=== PATIENT | female | born 1980 | race Two or more races ===

== ENCOUNTER 2016-12-21 06:21 | Day surgery (SDC) | payer OTHER ==
[2016-12-20 14:51] LABS: CHLORIDE,CL 107 mmol/L (98-110); SODIUM,NA 140 mmol/L (136-146)
[~2016-12-21 06:21] MED LIST: Lactated Ringers 1,000 ML IV SCH; Sodium Chloride 0.9% 10 ML Syringe FLUSH PRN; Sodium Chloride 0.9% 2.5 ML Syringe FLUSH PRN; ceFAZolin 2 GM in Premix Bag 1 BAG IV ONE
[2016-12-21] MEDS ORDERED: Fluorescein 5 ML Vial ONE (07:30)
[2016-12-21] MEDS ORDERED: Propofol 200 MG/20 ML SDV ONE (07:31)
[2016-12-21] MEDS ORDERED: fentaNYL 100 MCG/2 ML SDV ONE ×2 (07:31→08:16)
[2016-12-21] MEDS ORDERED: Midazolam 1 MG/ML 2 ML SDV ONE (07:31)
[2016-12-21] MEDS ORDERED: Octyl 2-Cyanoacrylate 1 Tube ONE (07:32)
[2016-12-21] MEDS ORDERED: Metoclopramide 10 MG/2 ML SDV ONE (07:37)
[2016-12-21] MEDS ORDERED: Rocuronium 10 MG/ML 10 ML Syringe ONE (07:37)
[2016-12-21] MEDS ORDERED: Ketorolac 30 MG/ML SDV ONE (07:37)
[2016-12-21] MEDS ORDERED: Lidocaine 2% 5 ML SDV ONE (07:37)
[2016-12-21] MEDS ORDERED: Ondansetron 4 MG/2 ML SDV ONE (07:37)
[2016-12-21] MEDS ORDERED: diphenhydrAMINE 50 MG/ML SDV ONE (07:37)
[2016-12-21] MEDS ORDERED: Neostigmine Methylsulfate 1 MG/ML 5 ML Syringe ONE (07:37)
[2016-12-21] MEDS ORDERED: ceFAZolin 1 GM Vial ONE (07:38)
[2016-12-21] MEDS ORDERED: fentaNYL 100 MCG/2 ML SDV IVPUSH PRN (07:43)
[2016-12-21] MEDS ORDERED: Scopolamine 1.5 MG Transdermal Patch TRDERM PRN (07:46)
--- NOTE | 2016-12-21 07:46 | PCM.PREANE ---
Preanesthetic Assessment - Anesthesia/Transfusion/Family Hx Anesthesia History: Prior Anesthesia Without Reaction Type of Anesthesia Reaction: Excessive Nausea/Vomiting Other Type of Anesthesia Reaction Comment: states "anesthesia wears off on me quickly" Family History of Anesthesia Reaction: No Transfusion History: No Prior Transfusion(s) - Review of Systems General: No Symptoms Pulmonary: No Symptoms Cardiovascular: No Symptoms Gastrointestinal: No Symptoms Neurological: No Symptoms Other: Reports: None - Physical Assessment NPO Status Date: 12/20/16 NPO Status Time: 18:00 O2 Sat by Pulse Oximetry: 98 Respiratory Rate: 16 Vital Signs: Last Vital Signs Temp 36.4 C 12/21/16 06:28 Pulse 79 12/21/16 06:28 Resp 16 12/21/16 06:28 BP 132/78 12/21/16 06:28 Pulse Ox 98 12/21/16 06:28 Height: 1.68 m Weight: 109.316 kg ASA Class: 2 Mental Status: Alert & Oriented x3 Airway Class: Mallampati = 2 Dentition: Reports: Normal Dentition ROM/Head Extension: Full Lungs: Clear to Auscultation, Normal Respiratory Effort Cardiovascular: Regular Rate, Regular Rhythm - Lab Values: Laboratory Last Values WBC 10.09 K/uL (4.0-11.0) 12/20/16 14:19 RBC 4.75 M/uL (4.30-5.90) 12/20/16 14:19 Hgb 9.5 g/dL (12.0-16.0) L 12/20/16 14:19 Hct 31.1 % (36.0-46.0) L 12/20/16 14:19 MCV 65.5 fL (80.0-98.0) L 12/20/16 14:19 MCH 20.0 pg (27.0-32.0) L 12/20/16 14:19 MCHC 30.5 g/dL (31.0-37.0) L 12/20/16 14:19 RDW Std Deviation 45.2 fl (28.0-62.0) 12/20/16 14:19 RDW Coeff of Abdoulaye 19 % (11.0-15.0) H 12/20/16 14:19 Plt Count 350 K/uL (150-400) 12/20/16 14:19 MPV 9.20 fL (7.40-12.00) 12/20/16 14:19 Nucleated RBC % 0.0 /100WBC 12/20/16 14:19 Nucleated RBCs # 0 K/uL 12/20/16 14:19 Sodium 140 mmol/L (136-146) 12/20/16 14:19 Potassium 3.6 mmol/L (3.5-5.1) 12/20/16 14:19 Chloride 107 mmol/L (98-110) 12/20/16 14:19 Carbon Dioxide 25 mmol/L (21-31) 12/20/16 14:19 BUN 13 mg/dL (6.0-23.0) 12/20/16 14:19 Creatinine 0.8 mg/dL (0.6-1.5) 12/20/16 14:19 Est Cr Clr Drug Dosing 91.01 mL/min 12/20/16 14:19 Estimated GFR (MDRD) > 60.0 ml/min 12/20/16 14:19 Glucose 94 mg/dL (60-110) 12/20/16 14:19 Calcium 9.4 mg/dL (8.8-10.8) 12/20/16 14:19 HCG, Qual NEGATIVE (NEG) 12/20/16 14:19 Blood Type O POSITIVE 12/20/16 14:19 Antibody Screen NEGATIVE 12/20/16 14:19 - Allergies Allergies/Adverse Reactions: Allergies Allergy/AdvReac Type Severity Reaction Status Date / Time mold Allergy sinus Verified 12/18/16 13:55 congestion - Anesthesia Plan Pre-Op Medication Ordered: Other (scop) - Acknowledgements Anesthesia Type Planned: General Anesthesia Pt an Appropriate Candidate for the Planned Anesthesia: Yes Alternatives and Risks of Anesthesia Discussed w Pt/Guardian: Yes Pt/Guardian Understands and Agrees with Anesthesia Plan: Yes PreAnesthesia Questionnaire HEENT History: Reports: Other (See Below) Other HEENT History: wears glasses Gastrointestinal History: Reports: GERD Genitourinary History: Reports: None SHIP CAPTAIN History: Reports: Musculoskeletal History: Reports: Back Pain, Chronic Neurological History: Reports: Migraines, Vertigo Psychiatric History: Reports: Anxiety, Depression Endocrine/Metabolic History: Reports: Obesity/BMI 30+ Hematologic History: Reports: Anemia - Past Surgical History Head Surgeries/Procedures: Reports: None HEENT Surgical History: Reports: Tonsillectomy GI Surgical History: Reports: Cholecystectomy Female Surgical History: Reports: Section, Tubal Ligation Other Female Surgeries/Procedures: hx cervical cerclage Musculoskeletal Surgical History: Reports: Carpal Tunnel - SUBSTANCE USE Smoking Status *Q: Former Smoker Tobacco Use Within Last Twelve Months: No Recreational Drug Use History: No - HOME MEDS Home Medications: Home Meds Diclofenac Sodium [Voltaren] 50 mg PO DAILY 12/18/16 [History] - CURRENT (IN HOUSE) MEDS Current Meds: Current Medications Fentanyl (Sublimaze) 50 mcg IVPUSH Q5M PRN PRN Reason: Pain (severe 7-10) Stop: 12/21/16 12:00 Lactated Ringer's (Ringers, Lactated) 1,000 mls @ 125 mls/hr IV ASDIRECTED CRISTHIAN Last Admin: 12/21/16 07:15 Dose: 125 mls/hr Sodium Chloride (Saline Flush) 10 ml FLUSH ASDIRECTED PRN PRN Reason: Keep Vein Open Sodium Chloride (Saline Flush) 2.5 ml FLUSH ASDIRECTED PRN PRN Reason: Keep Vein Open Discontinued Medications Cefazolin Sodium (Ancef) Confirm Administered Dose 2 gm .ROUTE .STK-MED ONE Stop: 12/21/16 07:39 Diphenhydramine HCl (Benadryl) Confirm Administered Dose 50 mg .ROUTE .STK-MED ONE Stop: 12/21/16 07:38 Fentanyl (Sublimaze) Confirm Administered Dose 100 mcg .ROUTE .STK-MED ONE Stop: 12/21/16 07:32 Fluorescein Sodium (Ak-Fluor) Confirm Administered Dose 5 ml .ROUTE .STK-MED ONE Stop: 12/21/16 07:31 Glycopyrrolate () Confirm Administered Dose 1 mg .ROUTE .STK-MED ONE Stop: 12/21/16 07:38 Cefazolin Sodium/Dextrose 2 gm (/ Premix) 50 mls @ 100 mls/hr IV ONETIME ONE Stop: 12/20/16 09:10 Ketorolac Tromethamine (Toradol) Confirm Administered Dose 30 mg .ROUTE .STK- MED ONE Stop: 12/21/16 07:38 Lidocaine (Xylocaine-Mpf 2%) Confirm Administered Dose 5 ml .ROUTE .STK-MED ONE Stop: 12/21/16 07:38 Metoclopramide HCl (Reglan) Confirm Administered Dose 10 mg .ROUTE .STK-MED ONE Stop: 12/21/16 07:38 Midazolam HCl (Versed 1 Mg/Ml) Confirm Administered Dose 2 mg .ROUTE .STK-MED ONE Stop: 12/21/16 07:32 Neostigmine Methylsulfate (Neostigmine) Confirm Administered Dose 5 mg .ROUTE .STK-MED ONE Stop: 12/21/16 07:38 Octyl Cyanoacrylate (Dermabond Advance) Confirm Administered Dose 1 applic .ROUTE .STK-MED ONE Stop: 12/21/16 07:33 Ondansetron HCl (Zofran) Confirm Administered Dose 4 mg .ROUTE .STK-MED ONE Stop: 12/21/16 07:38 Propofol (Diprivan 20 Ml) Confirm Administered Dose 200 mg .ROUTE .STK-MED ONE Stop: 12/21/16 07:32 Rocuronium [place] (Zemuron) Confirm Administered Dose 100 mg .ROUTE .STK-MED ONE Stop: 12/21/16 07:38
[2016-12-21] MEDS ORDERED: Ondansetron 4 MG/2 ML SDV IVPUSH PRN (10:05)
[2016-12-21] MEDS ORDERED: Acetaminophen/oxyCODONE 325-5 MG Tab PO PRN (10:05)
[2016-12-21] MEDS ORDERED: Ketorolac 30 MG/ML SDV IVPUSH ONE (10:05)
[2016-12-21] MEDS ORDERED: Promethazine 25 MG/ML SDV IM PRN (10:05)
--- NOTE | 2016-12-21 10:14 | PCM.OPNOTE ---
- General Post-Op/Procedure Note Date of Surgery/Procedure: 12/21/16 Operative Procedure(s): TLH,Bisalpengectomy and cystoscopy. Pre Op Diagnosis: Menorraghia Post-Op Diagnosis: Same Anesthesia Technique: General ET Tube Primary Surgeon: Donnie Khoury EBL in mLs: 125 Complications: None Condition: Good
--- NOTE | 2016-12-21 11:38 | PCM.POSTAN ---
POST ANESTHESIA ASSESSMENT - MENTAL STATUS Mental Status: Alert, Oriented - RESPIRATORY Respiratory Status: Respiratory Rate WNL, Airway Patent, O2 Saturation Stable - CARDIOVASCULAR CV Status: Pulse Rate WNL, Blood Pressure Stable - GASTROINTESTINAL GI Status: No Symptoms - PAIN Pain Score: 3 - POST OP HYDRATION Hydration Status: Adequate & Stable
[2016-12-21] MEDS: Morphine 4 MG/ML Syringe IVPUSH PRN (12:23)
--- NOTE | 2016-12-21 14:07 | OR ---
SURGEON: Donnie Khoury MD DATE OF PROCEDURE: PREOPERATIVE DIAGNOSES: Enlarged uterus, possible fibroid, menometrorrhagia, and anemia. POSTOPERATIVE DIAGNOSES: Enlarged uterus, possible fibroid, menometrorrhagia, and anemia. OPERATION PERFORMED: Multiple puncture diagnostic laparoscopy, lysis of adhesion, total laparoscopic hysterectomy, laparoscopic bilateral salpingectomy preserving both ovary and cystoscopy. FINANCIAL SERVICE PROFESSIONAL: Rose Flood and Dr. Walter. ESTIMATED BLOOD LOSS: 125 mL. COMPLICATION: None. FINDINGS: Pelvic adhesion from her previous section and enlarged uterus with possible fibroid. INDICATION: Bon Wier refer to the admit note. PROCEDURE IN DETAIL: The patient was brought to the OR, properly identified and after adequate level of general anesthesia, the patient was placed in lithotomy position with an access to the abdomen and the vagina. The patient was prepped and draped in sterile fashion as usual. Hall catheter was placed in the bladder for drainage and Brodie surgical manipulator colpotomizer placed in the uterus and vagina and then the operation shifted abdominally. Stab wound done beneath the umbilicus. The Veress needle was placed in the peritoneal cavity and that cavity was insufflated with 6 L of carbon dioxide. The skin incision was enlarged to accommodate 5-mm trocar and using the Visiport technique, the peritoneal cavity was entered. Once we did that and then 10-12 trocars and 5-mm trocar under direct vision was placed in the abdomen. The patient does have a pelvic adhesion around the pelvis and anterior abdominal wall from her previous section. Using a scissor and Ej Harmonic scalpel, these pelvic adhesions taken down restoring normal anatomy and restoring direct vision to the pelvis. Then, the ureter identified from both side and the superior pedicle coagulated and transected. The tube was included with the specimen. The ovary was preserved and then the round ligament dissected downward medially and transected using the Ej Harmonic scalpel and then the anterior leaf of the broad ligament dissected downward medially. The patient have previous multiple sections, so with careful sharp and blunt dissection using the Ej Harmonic scalpel, the bladder dissected completely away from the lower uterine segment and the cervix and the surgeon could feel easily the rings through the vagina. Then skeletonization of the uterine vessel done under direct vision and then with the ureter away from harm's way, this uterine vessel was coagulated and transected and then the vagina was entered at the tip of the manipulator detaching the cervix from its attachment to the vagina. The cervix and uterus and both tubes removed vaginally and pneumoperitoneum re-established by placing a vaginal pack in the vagina. Thorough irrigation of the pelvis was done at this time. There was no oozing, no bleeding and proceeded to close the vaginal cuff laparoscopically with #2 PDS in an interrupted suture laparoscopically. While we were doing that, we asked the anesthesiologist to give the patient 5 mL of fluorescein and then after closing the vagina of the bladder, the Hall catheter removed, cystoscopy was performed. The bladder was intact. Both ureteric orifices were seen with the dye coming from both of them. Thus, the patency of both ureters verified. Satisfied with these findings, the instrument and hardware were retrieved from the abdomen and the vagina and the multiple laparoscopic incisions were closed with 3-0 Vicryl in layer. At this time, the procedure was ended. The patient went to recovery room in stable general condition. SAMPSON NICHOLSON /[id number]
[2016-12-21] MEDS: Ketorolac 30 MG/ML SDV IVPUSH PRN ×2 (15:54→22:01)
[2016-12-21] MEDS ORDERED: Benzocaine/Cetylpyridinium/Menthol Lozenge MUCMEM PRN (18:52)
--- NOTE | 2016-12-21 18:54 | PCM48HPAN ---
Post Anesthesia Note - EVALUATION WITHIN 48HRS OF ANESTHETIC Vital Signs in Normal Range: Yes Patient Participated in Evaluation: Yes Respiratory Function Stable: Yes Airway Patent: Yes Cardiovascular Function Stable: Yes Hydration Status Stable: Yes Pain Control Satisfactory: Yes Nausea and Vomiting Control Satisfactory: Yes Mental Status Recovered: Yes
[2016-12-21] MEDS ORDERED: Acetaminophen 500 MG Tab PO PRN (21:38)
[2016-12-22] MEDS: Morphine 4 MG/ML Syringe IVPUSH PRN (00:21)
[2016-12-22 05:55] LABS: CHLORIDE,CL 108 mmol/L (98-110); SODIUM,NA 139 mmol/L (136-146)
[2016-12-22] MEDS: Ketorolac 30 MG/ML SDV IVPUSH PRN (08:16)
[2016-12-22 08:35] VITALS: BP 106/61
--- NOTE | 2016-12-22 09:23 | PCM.SURGPN ---
- General Info Date of Service: 12/22/16 POD#: 1 Functional Status: Reports: Pain Controlled - Review of Systems General: Reports: No Symptoms HEENT: Reports: No Symptoms Pulmonary: Reports: No Symptoms Cardiovascular: Reports: No Symptoms Gastrointestinal: Reports: No Symptoms Genitourinary: Reports: No Symptoms Musculoskeletal: Reports: No Symptoms Skin: Reports: No Symptoms Neurological: Reports: No Symptoms Psychiatric: Reports: No Symptoms - Patient Data Vitals - Most Recent: Last Vital Signs Temp 37.4 C 12/22/16 08:05 Pulse 70 12/22/16 08:05 Resp 16 12/22/16 08:05 BP 106/61 12/22/16 08:05 Pulse Ox 96 12/22/16 08:05 Weight - Most Recent: 109.316 kg I&O - Last 24 Hours: Intake & Output 12/21/16 12/22/16 12/22/16 22:59 06:59 14:59 Output Total 100 Balance -100 Lab Results Last 24 Hrs: Laboratory Results - last 24 hr 12/22/16 12/22/16 Range/Units 05:10 05:10 WBC 10.09 (4.0-11.0) K/uL RBC 3.81 L (4.30-5.90) M/uL Hgb 7.4 L (12.0-16.0) g/dL Hct 25.0 L (36.0-46.0) % MCV 65.6 L (80.0-98.0) fL MCH 19.4 L (27.0-32.0) pg MCHC 29.6 L (31.0-37.0) g/dL RDW Std Deviation 46.1 (28.0-62.0) fl RDW Coeff of Abdoulaye 19 H (11.0-15.0) % Plt Count 263 (150-400) K/uL MPV 8.70 (7.40-12.00) fL Neut % (Auto) 69.4 (48.0-80.0) % Lymph % (Auto) 21.6 (16.0-40.0) % [place] % (Auto) 5.7 (0.0-15.0) % Eos % (Auto) 3.2 (0.0-7.0) % Baso % (Auto) 0.1 (0.0-1.5) % Neut # (Auto) 7.0 H (1.4-5.7) K/uL Lymph # (Auto) 2.2 (0.6-2.4) K/uL [place] # (Auto) 0.6 (0.0-0.8) K/uL Eos # (Auto) 0.3 (0.0-0.7) K/uL Baso # (Auto) 0.0 (0.0-0.1) K/uL Nucleated RBC % 0.0 /100WBC Nucleated RBCs # 0 K/uL Sodium 139 (136-146) mmol/L Potassium 3.6 (3.5-5.1) mmol/L Chloride 108 (98-110) mmol/L Carbon Dioxide 26 (21-31) mmol/L BUN 11 (6.0-23.0) mg/dL Creatinine 0.8 (0.6-1.5) mg/dL Est Cr Clr Drug Dosing 91.01 mL/min Estimated GFR (MDRD) > 60.0 ml/min Glucose 91 (60-110) mg/dL Calcium 8.4 L (8.8-10.8) mg/dL Med Orders - Current: Current Medications Acetaminophen (Tylenol Extra Strength) 500 mg PO Q6H PRN PRN Reason: Pain (moderate 4-6) Last Admin: 12/21/16 22:00 Dose: 500 mg Benzocaine/Menthol (Cepacol Sore Throat) 1 lozenge MUCMEM ASDIRECTED PRN PRN Reason: Sore Throat Lactated Ringer's (Ringers, Lactated) 1,000 mls @ 125 mls/hr IV ASDIRECTED CRISTHIAN Last Admin: 12/21/16 07:15 Dose: 125 mls/hr Ketorolac Tromethamine (Toradol) 30 mg IVPUSH Q6H PRN PRN Reason: Pain (severe 7-10) Stop: 12/26/16 10:10 Last Admin: 12/22/16 08:16 Dose: 30 mg Morphine Sulfate (Morphine) 4 mg IVPUSH Q2H PRN PRN Reason: Pain (severe 7-10) Last Admin: 12/22/16 00:21 Dose: 4 mg Ondansetron HCl (Zofran) 4 mg IVPUSH Q6H PRN PRN Reason: Nausea/Vomiting Last Admin: 12/21/16 15:54 Dose: 4 mg Oxycodone/Acetaminophen (Percocet 325-5 Mg) 2 tab PO Q4H PRN PRN Reason: Pain (moderate 4-6) Promethazine HCl (Phenergan) 25 mg IM Q6H PRN PRN Reason: Nausea/Vomiting Scopolamine (Transderm-Scop) 1.5 mg TRDERM Q72H PRN PRN Reason: Nausea/Vomiting Last Admin: 12/21/16 07:51 Dose: 1.5 mg Sodium Chloride (Saline Flush) 10 ml FLUSH ASDIRECTED PRN PRN Reason: Keep Vein Open Sodium Chloride (Saline Flush) 2.5 ml FLUSH ASDIRECTED PRN PRN Reason: Keep Vein Open Discontinued Medications Cefazolin Sodium (Ancef) Confirm Administered Dose 2 gm .ROUTE .STK-MED ONE Stop: 12/21/16 07:39 Diphenhydramine HCl (Benadryl) Confirm Administered Dose 50 mg .ROUTE .STK-MED ONE Stop: 12/21/16 07:38 Fentanyl (Sublimaze) Confirm Administered Dose 100 mcg .ROUTE .STK-MED ONE Stop: 12/21/16 07:32 Fentanyl (Sublimaze) 50 mcg IVPUSH Q5M PRN PRN Reason: Pain (severe 7-10) Stop: 12/21/16 12:00 Last Admin: 12/21/16 10:30 Dose: 50 mcg Fentanyl (Sublimaze) Confirm Administered Dose 300 mcg .ROUTE .STK-MED ONE Stop: 12/21/16 08:17 Fluorescein Sodium (Ak-Fluor) Confirm Administered Dose 5 ml .ROUTE .STK-MED ONE Stop: 12/21/16 07:31 Glycopyrrolate () Confirm Administered Dose 1 mg .ROUTE .STK-MED ONE Stop: 12/21/16 07:38 Cefazolin Sodium/Dextrose 2 gm (/ Premix) 50 mls @ 100 mls/hr IV ONETIME ONE Stop: 12/20/16 09:10 Ketorolac Tromethamine (Toradol) Confirm Administered Dose 30 mg .ROUTE .STK- MED ONE Stop: 12/21/16 07:38 Ketorolac Tromethamine (Toradol) 30 mg IVPUSH ONETIME ONE Stop: 12/21/16 10:06 Last Admin: 12/21/16 18:27 Dose: Not Given Lidocaine (Xylocaine-Mpf 2%) Confirm Administered Dose 5 ml .ROUTE .STK-MED ONE Stop: 12/21/16 07:38 Metoclopramide HCl (Reglan) Confirm Administered Dose 10 mg .ROUTE .STK-MED ONE Stop: 12/21/16 07:38 Midazolam HCl (Versed 1 Mg/Ml) Confirm Administered Dose 2 mg .ROUTE .STK-MED ONE Stop: 12/21/16 07:32 Neostigmine Methylsulfate (Neostigmine) Confirm Administered Dose 5 mg .ROUTE .STK-MED ONE Stop: 12/21/16 07:38 Octyl Cyanoacrylate (Dermabond Advance) Confirm Administered Dose 1 applic .ROUTE .STK-MED ONE Stop: 12/21/16 07:33 Ondansetron HCl (Zofran) Confirm Administered Dose 4 mg .ROUTE .STK-MED ONE Stop: 12/21/16 07:38 Propofol (Diprivan 20 Ml) Confirm Administered Dose 200 mg .ROUTE .STK-MED ONE Stop: 12/21/16 07:32 Rocuronium [place] (Zemuron) Confirm Administered Dose 100 mg .ROUTE .STK-MED ONE Stop: 12/21/16 07:38 - Exam Wound/Incisions: Healing Well General: Alert, Oriented HEENT: Pupils Equal Neck: Supple Lungs: Clear to Auscultation, Normal Respiratory Effort Cardiovascular: Regular Rate, Regular Rhythm GI/Abdominal Exam: Normal Bowel Sounds, Soft, Non-Tender, No Organomegaly, No Distention, No Abnormal Bruit, No Mass, Pelvis Stable Extremities: Normal Inspection, Normal Range of Motion, Non-Tender, No Pedal Edema, Normal Capillary Refill Skin: Warm, Dry, Intact Neurological: No New Focal Deficit Psy/Mental Status: Alert, Normal Affect, Normal Mood - Problem List Review Problem List Initiated/Reviewed/Updated: Yes - My Orders Last 24 Hours: Active Orders 24 hr Category Date Time Status Patient Status [ADT] Routine ADT 12/21/16 10:10 Active Notify Provider Vital Signs [RC] ASDIRECTED Care 12/21/16 10:10 Active RT Incentive Spirometry [RC] Q2HWA Care 12/21/16 10:10 Active Up With Assistance [RC] PER UNIT ROUTINE Care 12/21/16 10:10 Active Up ad Etta [RC] PER UNIT ROUTINE Care 12/21/16 10:10 Active Vital Signs [RC] PER UNIT ROUTINE Care 12/21/16 10:10 Active Regular Diet [DIET] Diet 12/21/16 Lunch Active Acetaminophen [Tylenol Extra Strength] Med 12/21/16 21:38 Active 500 mg PO Q6H PRN Acetaminophen/oxyCODONE [Percocet 325-5 MG] Med 12/21/16 10:05 Active 2 tab PO Q4H PRN Benzocaine/Cetylpyrd/Menthol [Cepacol Sore Throat] Med 12/21/16 18:52 Active 1 lozenge MUCMEM ASDIRECTED PRN Ketorolac [Toradol] Med 12/21/16 10:05 Active 30 mg IVPUSH Q6H PRN Morphine Med 12/21/16 10:05 Active 4 mg IVPUSH Q2H PRN Ondansetron [Zofran] Med 12/21/16 10:05 Active 4 mg IVPUSH Q6H PRN Promethazine [Phenergan] Med 12/21/16 10:05 Active 25 mg IM Q6H PRN Peripheral IV Discontinue [OM.PC] Routine Oth 12/21/16 10:10 Ordered Sequential Compression Device [OM.PC] Per Unit Routine Oth 12/21/16 10:10 Ordered Resuscitation Status Routine Resus Stat 12/21/16 10:05 Ordered Medication Orders Acetaminophen (Tylenol Extra Strength) 500 mg PO Q6H PRN PRN Reason: Pain (moderate 4-6) Last Admin: 12/21/16 22:00 Dose: 500 mg Benzocaine/Menthol (Cepacol Sore Throat) 1 lozenge MUCMEM ASDIRECTED PRN PRN Reason: Sore Throat Lactated Ringer's (Ringers, Lactated) 1,000 mls @ 125 mls/hr IV ASDIRECTED CRISTHIAN Last Admin: 12/21/16 07:15 Dose: 125 mls/hr Ketorolac Tromethamine (Toradol) 30 mg IVPUSH Q6H PRN PRN Reason: Pain (severe 7-10) Stop: 12/26/16 10:10 Last Admin: 12/22/16 08:16 Dose: 30 mg Admin: 09/14/17 22:01 Dose: 30 mg Admin: 12/21/16 15:54 Dose: 30 mg Morphine Sulfate (Morphine) 4 mg IVPUSH Q2H PRN PRN Reason: Pain (severe 7-10) Last Admin: 12/22/16 00:21 Dose: 4 mg Admin: 12/21/16 12:23 Dose: 4 mg Ondansetron HCl (Zofran) 4 mg IVPUSH Q6H PRN PRN Reason: Nausea/Vomiting Last Admin: 12/21/16 15:54 Dose: 4 mg Oxycodone/Acetaminophen (Percocet 325-5 Mg) 2 tab PO Q4H PRN PRN Reason: Pain (moderate 4-6) Promethazine HCl (Phenergan) 25 mg IM Q6H PRN PRN Reason: Nausea/Vomiting Scopolamine (Transderm-Scop) 1.5 mg TRDERM Q72H PRN PRN Reason: Nausea/Vomiting Last Admin: 12/21/16 07:51 Dose: 1.5 mg Sodium Chloride (Saline Flush) 10 ml FLUSH ASDIRECTED PRN PRN Reason: Keep Vein Open Sodium Chloride (Saline Flush) 2.5 ml FLUSH ASDIRECTED PRN PRN Reason: Keep Vein Open - Assessment Assessment (Free Text/Narrative):: Status post total laparoscopic hysterectomy and cystoscopy postoperative day #1 the patient is doing well there's no vaginal bleeding she is on regular diet tolerated very well she is voiding without any problem and there is no vaginal bleeding and had lab work is within normal limits - Plan Plan (Free Text/Narrative):: I am sending her home today on given her the post hysterectomy instruction she was given prescription of tramadol to take for postoperative pain follow-up examination in 1 week for postoperative check
== END 2016-12-22 09:50 | disposition home or self-care (01) ==
LOC: MW.SDS 06:21 → MW.OB 10:10 → MW.SDS 12-22 09:50
PROVIDERS: ATTEND Obstetrics & Gynecology
DX: D26.1 Other benign neoplasm of corpus uteri (principal); N84.0 Polyp of corpus uteri; F41.9 Anxiety disorder, unspecified; F32.9 Major depressive disorder, single episode, unspecified; K21.9 Gastro-esophageal reflux disease without esophagitis; J30.2 Other seasonal allergic rhinitis; Z90.49 Acquired absence of other specified parts of digestive tract; Z98.890 Other specified postprocedural states; Z98.51 Tubal ligation status; Z91.09 Other allergy status, other than to drugs and biological substances; Z87.891 Personal history of nicotine dependence
CPT/HCPCS: 36415; 58552; 80048; 84703; 85025; 85027; 86850; 86900; 86901; 88309; A9270; J0690; J1200; J1885; J2250; J2270; J2405; J2765; J3010; J7120; 00840; J2704

== ENCOUNTER 2016-12-25 16:56 | Emergency (ER) | payer OTHER ==
[2016-12-25] MEDS ORDERED: Ketorolac 30 MG/ML SDV IVPUSH ONE (17:04)
[2016-12-25] MEDS ORDERED: Sodium Chloride 0.9% 2.5 ML Syringe FLUSH PRN (17:04)
[2016-12-25] MEDS ORDERED: diphenhydrAMINE 50 MG/ML SDV IVPUSH ONE (17:04)
[2016-12-25] MEDS ORDERED: Metoclopramide 10 MG/2 ML SDV IV ONE (17:04)
[2016-12-25] MEDS ORDERED: Ondansetron 4 MG/2 ML SDV IVPUSH ONE (17:04)
[2016-12-25] MEDS ORDERED: Sodium Chloride 0.9% 10 ML Syringe FLUSH PRN (17:04)
[2016-12-25] MEDS ORDERED: Sodium Chloride 0.9% 1,000 ML IV ONE (17:04)
--- NOTE | 2016-12-25 17:07 | EDM.PDOC ---
ED HPI GENERAL MEDICAL PROBLEM - General Stated Complaint: HAD SURGERY/VOMITING Time Seen by Provider: 12/25/16 17:01 - History of Present Illness INITIAL COMMENTS - FREE TEXT/NARRATIVE: HISTORY AND PHYSICAL: History of present illness: Patient 36-year-old female recently had a hysterectomy presents for a concern of headache patient has had chronic intermittent headaches and states as well as slightly more severe she's had associated nausea and photophobia denies fever chills chest pain shortness breath or other concern Review of systems: As per history of present illness and below otherwise all systems reviewed and negative. Past medical history: As per history of present illness and as reviewed below otherwise noncontributory. Surgical history: As per history of present illness and as reviewed below otherwise noncontributory. Social history: No reported history of drug or alcohol abuse. Family history: As per history of present illness and as reviewed below otherwise noncontributory. Physical exam: HEENT: Atraumatic, normocephalic, pupils reactive, negative for conjunctival pallor or scleral icterus, mucous membranes moist, throat clear, neck supple, nontender, trachea midline. Lungs: Clear to auscultation, breath sounds equal bilaterally, chest nontender. Heart: S1S2, regular, negative for clicks, rubs, or JVD. Abdomen: Soft, nondistended, nontender. Negative for masses or hepatosplenomegaly. Negative for costovertebral tenderness. Pelvis: Stable nontender. Genitourinary: Deferred. Rectal: Deferred. Extremities: Atraumatic, negative for cords or calf pain. Neurovascular unremarkable. Neuro: Awake, alert, oriented. Cranial nerves II through XII unremarkable. Cerebellum unremarkable. Motor and sensory unremarkable throughout. Exam nonfocal. Diagnostics: CBC CMP lipase Therapeutics: Normal saline 1 L bolus and Toradol 30 mg IV Reglan 10 mg IV Benadryl 50 mg IV and Zofran 4 mg IV Impression: #1 cephalgia Definitive disposition and diagnosis as appropriate pending reevaluation and review of above. - Related Data Allergies Allergy/AdvReac Type Severity Reaction Status Date / Time mold Allergy sinus Verified 12/25/16 17:12 congestion Home Meds: Home Meds . [No Known Home Meds] 12/25/16 [History] Past Medical History HEENT History: Reports: Other (See Below) Other HEENT History: wears glasses Gastrointestinal History: Reports: GERD Genitourinary History: Reports: None INFORMATION TECHNOLOGY ARCHITECT History: Reports: Musculoskeletal History: Reports: Back Pain, Chronic Neurological History: Reports: Migraines, Vertigo Psychiatric History: Reports: Anxiety, Depression Endocrine/Metabolic History: Reports: Obesity/BMI 30+ Hematologic History: Reports: Anemia - Past Surgical History Head Surgeries/Procedures: Reports: None HEENT Surgical History: Reports: Tonsillectomy GI Surgical History: Reports: Cholecystectomy Female Surgical History: Reports: Section, Tubal Ligation Other Female Surgeries/Procedures: hx cervical cerclage Musculoskeletal Surgical History: Reports: Carpal Tunnel Social & Family History - Tobacco Use Smoking Status *Q: Former Smoker Used Tobacco, but Quit: Yes Month Tobacco Last Used: quit smoking 5 yrs ago - Caffeine Use Caffeine Use: Reports: Coffee - Recreational Drug Use Recreational Drug Use: No ED ROS GENERAL - Review of Systems Review Of Systems: ROS reveals no pertinent complaints other than HPI. ED EXAM, GENERAL - Physical Exam Exam: See Below (See dictation) Course - Vital Signs Last Recorded V/S: Last Vital Signs Temp 36.1 C 12/25/16 17:09 Pulse 68 12/25/16 17:59 Resp 18 12/25/16 17:59 BP 140/80 12/25/16 17:59 Pulse Ox 100 12/25/16 17:59 - Orders/Labs/Meds Orders: Active Orders 24 hr Category Date Time Status Sodium Chloride 0.9% [Saline Flush] Med 12/25/16 17:04 Active 10 ml FLUSH ASDIRECTED PRN Sodium Chloride 0.9% [Saline Flush] Med 12/25/16 17:04 Active 2.5 ml FLUSH ASDIRECTED PRN Saline Lock Insert [OM.PC] Stat Oth 12/25/16 17:04 Ordered Medication Orders Sodium Chloride (Saline Flush) 10 ml FLUSH ASDIRECTED PRN PRN Reason: Keep Vein Open Sodium Chloride (Saline Flush) 2.5 ml FLUSH ASDIRECTED PRN PRN Reason: Keep Vein Open Labs: Laboratory Tests 12/25/16 12/25/16 Range/Units 17:41 17:41 WBC 12.88 H (4.0-11.0) K/uL RBC 4.43 (4.30-5.90) M/uL Hgb 8.9 L (12.0-16.0) g/dL Hct 29.2 L (36.0-46.0) % MCV 65.9 L (80.0-98.0) fL MCH 20.1 L (27.0-32.0) pg MCHC 30.5 L (31.0-37.0) g/dL RDW Std Deviation 45.8 (28.0-62.0) fl RDW Coeff of Abdoulaye 19 H (11.0-15.0) % Plt Count 315 (150-400) K/uL MPV 8.80 (7.40-12.00) fL Neut % (Auto) 85.6 H (48.0-80.0) % Lymph % (Auto) 8.2 L (16.0-40.0) % [facility] [place] [facility] % (Auto) 3.5 (0.0-15.0) % Eos % (Auto) 2.6 (0.0-7.0) % Baso % (Auto) 0.1 (0.0-1.5) % Neut # (Auto) 11.0 H (1.4-5.7) K/uL Lymph # (Auto) 1.1 (0.6-2.4) K/uL [facility] [place] [facility] # (Auto) 0.5 (0.0-0.8) K/uL Eos # (Auto) 0.3 (0.0-0.7) K/uL Baso # (Auto) 0.0 (0.0-0.1) K/uL Nucleated RBC % 0.0 /100WBC Nucleated RBCs # 0 K/uL Sodium 138 (136-146) mmol/L Potassium 3.8 (3.5-5.1) mmol/L Chloride 103 (98-110) mmol/L Carbon Dioxide 24 (21-31) mmol/L BUN 11 (6.0-23.0) mg/dL Creatinine 0.8 (0.6-1.5) mg/dL Est Cr Clr Drug Dosing 91.01 mL/min Estimated GFR (MDRD) > 60.0 ml/min Glucose 115 H (60-110) mg/dL Calcium 9.3 (8.8-10.8) mg/dL Total Bilirubin 0.4 (0.1-1.5) mg/dL AST 19 (5-40) IU/L ALT 23 (8-54) IU/L Alkaline Phosphatase 82 (40-150) Total Protein 7.4 (6.0-8.0) g/dL Albumin 4.2 (3.5-5.0) g/dL Globulin 3.2 (2.0-3.5) g/dL Albumin/Globulin Ratio 1.3 (1.3-2.8) Lipase < 9 (7-80) U/L Meds: Medications Generic Name Dose Route Start Last Admin Trade Name Freq PRN Reason Stop Dose Admin Sodium Chloride 10 ml 12/25/16 17:04 Saline Flush FLUSH ASDIRECTED PRN Keep Vein Open Sodium Chloride 2.5 ml 12/25/16 17:04 Saline Flush FLUSH ASDIRECTED PRN Keep Vein Open Discontinued Medications Generic Name Dose Route Start Last Admin Trade Name Freq PRN Reason Stop Dose Admin Diphenhydramine HCl 50 mg 12/25/16 17:04 12/25/16 17:50 Benadryl IVPUSH 12/25/16 17:05 50 mg ONETIME ONE Administration Sodium Chloride 1,000 mls @ 999 mls/hr 12/25/16 17:04 12/25/16 17:45 Normal Saline IV 12/25/16 18:04 999 mls/hr STAT ONE Administration Ketorolac Tromethamine 30 mg 12/25/16 17:04 12/25/16 17:54 Toradol IVPUSH 12/25/16 17:05 30 mg ONETIME ONE Administration Metoclopramide HCl 10 mg 12/25/16 17:04 12/25/16 17:59 Reglan IV 12/25/16 17:05 10 mg ONETIME ONE Administration Ondansetron HCl 4 mg 12/25/16 17:04 12/25/16 17:45 Zofran IVPUSH 12/25/16 17:05 4 mg ONETIME ONE Administration Departure - Departure Time of Disposition: 19:13 Disposition: Home, Self-Care 01 Condition: Good Clinical Impression: Cephalgia - Discharge Information Referrals: Donnie Khoury MD [Primary Care Provider] - Additional Instructions: The following information is given to patients seen in the emergency department who are being discharged to home. This information is to outline your options for follow-up care. We provide all patients seen in our emergency department with a follow-up referral. The need for follow-up, as well as the timing and circumstances, are variable depending upon the specifics of your emergency department visit. If you don't have a primary care physician on staff, we will provide you with a referral. We always advise you to contact your personal physician following an emergency department visit to inform them of the circumstance of the visit and for follow-up with them and/or the need for any referrals to a consulting specialist. The emergency department will also refer you to a specialist when appropriate. This referral assures that you have the opportunity for followup care with a specialist. All of these measure are taken in an effort to provide you with optimal care, which includes your followup. Under all circumstances we always encourage you to contact your private physician who remains a resource for coordinating your care. When calling for followup care, please make the office aware that this follow-up is from your recent emergency room visit. If for any reason you are refused follow-up, please contact the [facility] emergency department at and asked to speak to the emergency department charge nurse. Follow-up primary medical doctor 1-2 days continue current meds return as needed as discussed - My Orders Last 24 Hours: My Active Orders 12/25/16 17:04 Sodium Chloride 0.9% [Saline Flush] 10 ml FLUSH ASDIRECTED PRN Sodium Chloride 0.9% [Saline Flush] 2.5 ml FLUSH ASDIRECTED PRN Saline Lock Insert [OM.PC] Stat - Assessment/Plan Last 24 Hours: My Active Orders 12/25/16 17:04 Sodium Chloride 0.9% [Saline Flush] 10 ml FLUSH ASDIRECTED PRN Sodium Chloride 0.9% [Saline Flush] 2.5 ml FLUSH ASDIRECTED PRN Saline Lock Insert [OM.PC] Stat
[2016-12-25 18:12] LABS: CHLORIDE,CL 103 mmol/L (98-110); SODIUM,NA 138 mmol/L (136-146)
[2016-12-25 19:14] VITALS: BP 121/64
== END 2016-12-25 19:30 | disposition home or self-care (01) ==
LOC: MW.ED 16:56
DX: R51 Headache (principal); E66.9 Obesity, unspecified; Z98.890 Other specified postprocedural states; Z87.891 Personal history of nicotine dependence; Z90.49 Acquired absence of other specified parts of digestive tract
CPT/HCPCS: 36415; 80053; 83690; 85025; 99284; J1200; J1885; J2405; J2765; J7040; 99283

== ENCOUNTER 2020-05-20 17:14 | Emergency (ER) | payer OTHER ==
[2020-05-20] MEDS ORDERED: Prochlorperazine 10 MG/2 ML SDV IVPUSH ONE (18:12)
[2020-05-20] MEDS ORDERED: Sodium Chloride 0.9% 1,000 ML IV ONE (18:12)
[2020-05-20] MEDS ORDERED: Ketorolac 30 MG/ML SDV IVPUSH ONE (18:12)
[2020-05-20] MEDS ORDERED: diphenhydrAMINE 50 MG/ML SDV IVPUSH ONE (18:12)
[2020-05-20] MEDS ORDERED: Dexamethasone 10 MG/ML SDV IVPUSH ONE (18:13)
--- NOTE | 2020-05-20 18:55 | EDM.PDOC ---
ED HPI GENERAL MEDICAL PROBLEM - General Chief Complaint: Headache Stated Complaint: HEAD ACHE/NAUSEA Time Seen by Provider: 05/20/20 17:51 - History of Present Illness INITIAL COMMENTS - FREE TEXT/NARRATIVE: CHIEF COMPLAINT(S): Headache HISTORY OF PRESENT ILLNESS: This is a 39-year-old woman with a past medical history of migraine headaches who comes to the emergency department with a chief complaint of headache. The patient states that starting since yesterday she has been experiencing a headache which she describes as 10 out of 10 and located everywhere. She describes the pain as pressure and it is not throbbing. She states that she has some associated nausea and some mild diffuse abdominal pain. She denies any fevers, chills, neck pain, trouble walking, trouble speaking, trouble swallowing. She states that she has some mild light sensitivity. She states that this feels similar to her prior migraines but it feels stronger. She states that she has not yet tried any pain medications except for diclofenac which did not help. She denies an illicit substance use. She denies any aggravating or relieving symptoms. She states in addition to the headache she has some mild left ear pain. She denies any drainage out of the ear. She denies any other symptoms REVIEW OF SYSTEMS: Constitutional: Denies fever, chills. Eyes: Denies eye pain Ears, Nose, Mouth, & Throat: Positive for left ear pain Cardiovascular: Denies chest pain Respiratory: Denies shortness of breath Gastrointestinal: Positive for nausea and abdominal pain. Denies vomiting, diarrhea, hematochezia, melena Genitourinary: Denies hematuria dysuria Skin:Denies a rash MSK: Denies joint pain Neurological: Has a different headache and light sensitivity. Denies blurred vision, double vision, numbness, tingling, weakness Psychiatric: Denies depression PAST MEDICAL HISTORY: As per history of present illness and as reviewed below otherwise noncontributory. SURGICAL HISTORY: As per history of present illness and as reviewed below otherwise noncontributory. LMP: Hysterectomy SOCIAL HISTORY: As per history of present illness and as reviewed below otherwise noncontributory. FAMILY HISTORY: As per history of present illness and as reviewed below otherwise noncontributory. EXAMINATION OF ORGAN SYSTEMS/BODY AREAS: Constitutional: Blood pressure is 145/81, heart rate 77, respiratory 16 with an oxygen saturation 98% on room air. Temperature 36.9 General: Overall well-appearing woman who is in no acute distress Psychiatric: Appropriate mood and affect. Eyes: No scleral icterus or conjunctival erythema pupils were 4 mm and reactive bilaterally. Extraocular movements intact. No vertical or horizontal nystagmus. ENMT: Moist mucous membranes. No pharyngeal erythema bilateral tympanic membranes without any erythema or bulging. No effusions noted. Cardiovascular: Regular, rate, and rhythm. No gallops, murmurs, or rubs. Bilateral upper extremity pulses symmetric and intact. Respiratory: Lungs clear to auscultation bilaterally. No wheezes, rales, or rhonchi. Gastrointestinal: Soft, non-tender, non-distended. Normoactive bowel sounds no rebound or guarding. Genitourinary: No suprapubic tenderness Musculoskeletal: Normal range of motion. Skin: No lesions or abrasions. Neurological: AOx4. CN grossly intact. Stregth 5/5 in bilateral upper and lower extremity. Sensation is intact bilaterally in upper and lower extremity. Gait appears normal. Finger to nose, heel to blackman, rapid alternating movements intact. MEDICAL DECISION MAKING AND COURSE IN THE ED WITH INTERPRETATION/REVIEW OF DIAGNOSTIC STUDIES: This is a 39-year-old woman with a past medical history of headaches who comes to the emergency department with what appears to be a migraine headache. At this time we will provide the patient with 1 L of normal saline bolus with Toradol, Compazine, Benadryl. I do not believe any imaging or labs are indicated. We will reevaluate for symptomatic improvement. On reevaluation, the patient stated that she felt better. I did encourage the patient to use [id number] Tylenol and Motrin for pain relief. She is to follow-up with her primary care physician and return for any new or worsening symptoms DISPOSITION: The patient was discharged home in stable condition. The patient will follow up with primary care physician CONDITION: Fair PROCEDURES: None FINAL IMPRESSION(S)/DIAGNOSES: 1. Acute migraine headache Dominic Ovalle M.D. headache Pain Score (Numeric/FACES): 10 - Related Data Allergies Allergy/AdvReac Type Severity Reaction Status Date / Time mold Allergy sinus Verified 05/20/20 18:15 congestion Home Meds: Home Meds Diclofenac Submicronized [Diclofenac] 35 mg PO ASDIRECTED PRN 05/20/20 [History] Past Medical History HEENT History: Reports: Other (See Below) Other HEENT History: wears glasses Gastrointestinal History: Reports: GERD Genitourinary History: Reports: None SCOUTS History: Reports: Musculoskeletal History: Reports: Back Pain, Chronic Neurological History: Reports: Migraines, Vertigo Psychiatric History: Reports: Anxiety, Depression Endocrine/Metabolic History: Reports: Obesity/BMI 30+ Hematologic History: Reports: Anemia - Infectious Disease History Infectious Disease History: Reports: Chicken Pox - Past Surgical History Head Surgeries/Procedures: Reports: None HEENT Surgical History: Reports: Tonsillectomy GI Surgical History: Reports: Cholecystectomy Female Surgical History: Reports: Section, Tubal Ligation Other Female Surgeries/Procedures: hx cervical cerclage Musculoskeletal Surgical History: Reports: Carpal Tunnel Social & Family History - Family History Family Medical History: No Pertinent Family History - Caffeine Use Caffeine Use: Reports: None - Recreational Drug Use Recreational Drug Use: No ED ROS GENERAL - Review of Systems Review Of Systems: See Below - Physical Exam Exam: See Below Course - Vital Signs Last Recorded V/S: Last Vital Signs Temp 36.6 C 05/20/20 19:05 Pulse 56 L 05/20/20 19:05 Resp 18 05/20/20 19:05 BP 113/55 L 05/20/20 19:05 Pulse Ox 98 05/20/20 19:05 - Orders/Labs/Meds Meds: Medications Discontinued Medications Generic Name Dose Route Start Last Admin Trade Name Freq PRN Reason Stop Dose Admin Dexamethasone 10 mg 05/20/20 18:13 05/20/20 18:26 Decadron IVPUSH 05/20/20 18:14 10 mg ONETIME ONE Administration Diphenhydramine HCl 50 mg 05/20/20 18:12 05/20/20 18:21 Benadryl IVPUSH 05/20/20 18:13 50 mg ONETIME ONE Administration Sodium Chloride 1,000 mls @ 999 mls/hr 05/20/20 18:12 05/20/20 18:21 Normal Saline IV 05/20/20 19:12 999 mls/hr .Bolus ONE Administration Ketorolac Tromethamine 15 mg 05/20/20 18:12 05/20/20 18:22 Toradol IVPUSH 05/20/20 18:13 15 mg ONETIME ONE Administration Prochlorperazine Edisylate 5 mg 05/20/20 18:12 05/20/20 18:31 Compazine IVPUSH 05/20/20 18:13 5 mg ONETIME ONE Administration Departure - Departure Time of Disposition: 18:54 Disposition: Home, Self-Care 01 Condition: Fair Clinical Impression: Migraine - Discharge Information *PRESCRIPTION DRUG MONITORING PROGRAM REVIEWED*: No *COPY OF PRESCRIPTION DRUG MONITORING REPORT IN PATIENT KIMBERLEE: No Instructions: Migraine Headache, [id number] Referrals: Bailey Rivera DO [Primary Care Provider] - Forms: ED Department Discharge Additional Instructions: You were evaluated today on an emergent basis. At this time I do believe you are experiencing a headache secondary to migraine. I do recommend that you continue to take ibuprofen or Excedrin [id number] for migraine relief. If you have any new worsening symptoms such as worsening headache, trouble walking, or vomiting that does not stop I would like you to come to the emergency department. I recommend that you follow-up with your primary care physician within 2 to 3 days for continued evaluation. [facility] - Primary Care [address] [place] [address] [place] [address] The patient is informed of any results of their evaluation and diagnostic workup and all questions are answered. They are given discharge instructions and return precautions. The patient is stable for discharge. The patient states they understand and agree with the plan and that they will return if their symptoms get worse or if they have any new concerns. The following information is given to patients seen in the emergency department who are being discharged to home. This information is to outline your options for follow-up care. We provide all patients seen in our emergency department with a follow-up referral. The need for follow-up, as well as the timing and circumstances, are variable depending upon the specifics of your emergency department visit. If you don't have a primary care physician on staff, we will provide you with a referral. We always advise you to contact your personal physician following an emergency department visit to inform them of the circumstance of the visit and for follow-up with them and/or the need for any referrals to a consulting specialist. The emergency department will also refer you to a specialist when appropriate. This referral assures that you have the opportunity for follow-up care with a specialist. All of these measure are taken in an effort to provide you with optimal care, which includes your follow-up. Under all circumstances we always encourage you to contact your private physician who remains a resource for coordinating your care. When calling for follow-up care, please make the office aware that this follow-up is from your recent emergency room visit. If for any reason you are refused follow-up, please contact the [facility] Emergency Department at and asked to speak to the emergency department charge nurse. Sepsis Event Note (ED) - Evaluation Sepsis Screening Result: No Definite Risk
[2020-05-20 19:13] VITALS: BP 113/55; PULSE 56
== END 2020-05-20 19:05 | disposition home or self-care (01) ==
LOC: MW.ED 17:14
DX: G43.909 Migraine, unspecified, not intractable, without status migrainosus (principal); E66.9 Obesity, unspecified; Z68.31 Body mass index [BMI] 31.0-31.9, adult; Z91.048 Other nonmedicinal substance allergy status
CPT/HCPCS: 96374; 96375; 99283; J0780; J1100; J1200; J1885; J7030

== ENCOUNTER 2020-12-09 17:57 | Emergency (ER) | payer OTHER ==
[2020-12-09] MEDS ORDERED: Acetaminophen/oxyCODONE 325-5 MG Tab PO ONE (18:27)
[2020-12-09] MEDS ORDERED: Ibuprofen 600 MG Tab PO ONE (18:27)
--- NOTE | 2020-12-09 18:42 | EDM.PDOC ---
<Chas Barone - Last Filed: 12/09/20 18:41> ED HPI GENERAL MEDICAL PROBLEM - General Chief Complaint: Lower Extremity Injury/Pain Stated Complaint: RT KNEE PAIN Time Seen by Provider: 12/09/20 18:13 Source of Information: Reports: Patient History Limitations: Reports: No Limitations - History of Present Illness INITIAL COMMENTS - FREE TEXT/NARRATIVE: 40-year-old female no past medical history presents for atraumatic right knee pain x3 hours. Patient states the pain is in the medial aspect of her right knee. She notes is worse with movement of the knee. She does not recall injuring the knee. She denies any fevers, redness, swelling to the area that she is noticed. She has not had pain like this in the past. 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: Musculoskeletal History: Reports: Back Pain, Chronic Neurological History: Reports: Migraines, Vertigo Psychiatric History: Reports: Anxiety, Depression Endocrine/Metabolic History: Reports: Obesity/BMI 30+ Hematologic History: Reports: Anemia - Infectious Disease History Infectious Disease History: Reports: Chicken Pox - Past Surgical History Head Surgeries/Procedures: Reports: None HEENT Surgical History: Reports: Tonsillectomy GI Surgical History: Reports: Cholecystectomy Female Surgical History: Reports: Section, Tubal Ligation Other Female Surgeries/Procedures: hx cervical cerclage Musculoskeletal Surgical History: Reports: Carpal Tunnel Social & Family History - Family History Family Medical History: No Pertinent Family History - Tobacco Use Tobacco Use Status *Q: Never Tobacco User - Caffeine Use Caffeine Use: Reports: None - Recreational Drug Use Recreational Drug Use: No Review of Systems - Review of Systems Review Of Systems: Comprehensive ROS is negative, except as noted in HPI. ED EXAM, GENERAL - Physical Exam Exam: See Below Exam Limited By: No Limitations General Appearance: Alert, WD/WN, No Apparent Distress Ears: Hearing Grossly Normal Throat/Mouth: Normal Voice, No Airway Compromise Head: Atraumatic, Normocephalic Neck: Normal Inspection Respiratory/Chest: No Respiratory Distress, Lungs Clear, Normal Breath Sounds, No Accessory Muscle Use Cardiovascular: Normal Peripheral Pulses, Regular Rate, Rhythm Extremities: Normal Inspection, Other (mild TTP of right knee medial joint line without large palpable effusion, no redness/warmth, intact ROM ) Neurological: Alert, Normal Cognition Psychiatric: Normal Affect, Normal Mood Course - Re-Assessments/Exams Free Text/Narrative Re-Assessment/Exam: 12/09/20 18:42 We will give analgesia. Will get x-ray imaging of the right knee. Departure - Departure Disposition: Home, Self-Care 01 Clinical Impression: Knee pain - Discharge Information Prescriptions: Ibuprofen 600 mg PO TID 5 Days #15 tablet Instructions: Acute Knee Pain, Adult Referrals: Jose Miguel Araujo MD [Primary Care Provider] - Forms: ED Department Discharge Additional Instructions: Your knee pain is most likely due to inflammation on the inside of your knee joint related to the arthritis and a piece of soft tissue that was pinched while you are walking. You can continue to walk around and living a normal life but I would recommend against any type of exercise for the next 2 to 4 days. I sent a prescription for ibuprofen to the pharmacy please take this 3 times a day with food for the next 5 days this will help with both the pain and inflammation in the joint. I encourage you to follow-up with your primary care doctor. If your symptoms do not improve as expected then can refer you onto orthopedic surgery if needed. The following information is given to patients seen in the emergency department who are being discharged to home. This information is to outline your options f or follow-up care. We provide all patients seen in our emergency department with a follow-up referral. The need for follow-up, as well as the timing and circumstances, are variable depending upon the specifics of your emergency department visit. If you don't have a primary care physician on staff, we will provide you with a referral. We always advise you to contact your personal physician following an emergency department visit to inform them of the circumstance of the visit and for follow-up with them and/or the need for any referrals to a consulting specialist. The emergency department will also refer you to a specialist when appropriate. This referral assures that you have the opportunity for follow-up care with a specialist. All of these measure are taken in an effort to provide you with optimal care, which includes your follow-up. Under all circumstances we always encourage you to contact your private physician who remains a resource for coordinating your care. When calling for follow-up care, please make the office aware that this follow-up is from your recent emergency room visit. If for any reason you are refused follow-up, please contact the [facility] Emergency Department at and asked to speak to the emergency department charge nurse. <Sj Rojo - Last Filed: 12/09/20 19:27> Course - Vital Signs Last Recorded V/S: Last Vital Signs Temp 98.7 F 12/09/20 18:13 Pulse 68 12/09/20 18:13 Resp 18 12/09/20 18:13 BP 132/82 12/09/20 18:13 Pulse Ox 98 12/09/20 18:13 - Orders/Labs/Meds Meds: Medications Discontinued Medications Generic Name Dose Route Start Last Admin Trade Name Sherwinq PRN Reason Stop Dose Admin Ibuprofen 600 mg 12/09/20 18:27 12/09/20 19:14 Ibuprofen 600 Mg Tab PO 12/09/20 18:28 600 mg ONETIME ONE Administration Ondansetron HCl 4 mg 12/09/20 19:04 12/09/20 19:14 Ondansetron 4 Mg Tab.Dis PO 12/09/20 19:05 4 mg ONETIME ONE Administration Oxycodone/Acetaminophen 2 tab 12/09/20 18:27 12/09/20 19:15 Acetaminophen/Oxycodone 325-5 Mg Tab PO 12/09/20 18:28 2 tab ONETIME ONE Administration Departure - Departure Time of Disposition: 19:25 Condition: Good - Discharge Information *PRESCRIPTION DRUG MONITORING PROGRAM REVIEWED*: Not Applicable *COPY OF PRESCRIPTION DRUG MONITORING REPORT IN PATIENT KIMBERLEE: Not Applicable Sepsis Event Note (ED) - Focused Exam Vital Signs: Vital Signs Temp Pulse Resp BP Pulse Ox 12/09/20 18:13 98.7 F 68 18 132/82 98 - Assessment/Plan Assessment:: Patient received in signout from prior provider at 7 PM. X-ray negative. I suspect arthritis or plaque irritation is the cause of her symptoms. Nothing on exam to suggest septic arthritis or gout. Patient will hold off on exercise for 2 to 3 days will do scheduled ibuprofen patient follow-up with primary care.
[2020-12-09] MEDS ORDERED: Ondansetron 4 MG Tab.DIS PO ONE (19:04)
--- NOTE | 2020-12-09 19:15 | CR ---
Indication: Atraumatic knee pain. Technique: Right knee 3 views. Comparison: None. Findings: No acute fracture or dislocation. The patella is normally aligned. Mild medial compartment narrowing. Mild spurring of the superior pole of the patella. No knee joint effusion. Soft tissues are unremarkable. Impression: 1. No acute findings. 2. Mild medial compartment narrowing. Dictated by Kaylen Long MD @ 12/09/2020 7:13:20 PM (Electronically Signed)
[2020-12-09 19:41] VITALS: BP 118/63; PULSE 59
== END 2020-12-09 19:40 | disposition home or self-care (01) ==
LOC: MW.ED 17:57
DX: M25.561 Pain in right knee (principal); E66.9 Obesity, unspecified; Z68.36 Body mass index [BMI] 36.0-36.9, adult; Z91.048 Other nonmedicinal substance allergy status
CPT/HCPCS: 73562; 99283; A9270

== ENCOUNTER 2021-01-10 09:45 | Emergency (ER) | payer OTHER ==
--- NOTE | 2021-01-10 09:57 | PCM.EKG ---
#1 Interpretation EKG Date: 01/10/21 Time: 09:49 Rhythm: NSR Rate (Beats/Min): 67 [place]: Normal P-Wave: Present QRS: Normal ST-T: Normal QT: Normal FL/PQ Interval: 182 EKG Interpretation Comments: normal EKG, non-ischemic
[2021-01-10] MEDS ORDERED: Aspirin 81 MG Tab.Chew PO ONE (10:04)
--- NOTE | 2021-01-10 10:10 | EDM.PDOC ---
ED HPI GENERAL MEDICAL PROBLEM - General Chief Complaint: Chest Pain Stated Complaint: BACK PAIN, CHEST PAIN Time Seen by Provider: 01/10/21 09:48 Source of Information: Reports: Patient History Limitations: Reports: No Limitations - History of Present Illness INITIAL COMMENTS - FREE TEXT/NARRATIVE: HISTORY AND PHYSICAL: History of present illness: Patient is a 40-year-old female who presents to the emergency room with complaints of chest and back pain. She states yesterday she started to notice she felt generally unwell, had mild stomach upset but did not think much of it. This morning when she woke up around 6 AM she noted some left-sided chest pain that radiates to the right side of her neck and into her back. Nothing makes the pain better or worse. Patient denies any fever, chills, headache, change in vision, syncope or near syncope. Denies any shortness of breath or cough. Denies any abdominal pain, nausea, vomiting, diarrhea, constipation or dysuria. Has not noted any blood in urine or stool. Patient has been eating and drinking appropriately. No recent sick contacts. She did recently travel from [place] 2 weeks ago to [place]. Review of systems: As per history of present illness and below otherwise all systems reviewed and negative. Past medical history: As per history of present illness and as reviewed below otherwise noncontributory. Surgical history: As per history of present illness and as reviewed below otherwise noncontributory. Social history: See social history for further information Family history: As per history of present illness and as reviewed below otherwise noncontributory. Physical exam: General: Well developed and well nourished 40-year-old female. Alert and orientated x 3. Nontoxic in appearance and in no acute distress. Vital signs are stable and have been reviewed by me. Nursing notes were reviewed. HEENT: Atraumatic, normocephalic, pupils equal and reactive bilaterally, negative for conjunctival pallor or scleral icterus, mucous membranes moist, TMs normal bilaterally, throat clear, neck supple, nontender, trachea midline. No drooling or trismus noted. No meningeal signs. No hot potato voice noted. Lungs: Clear to auscultation bilaterally. No wheezes, rales, or rhonchi. Chest nontender. Normal work of breathing, no accessory muscles used. Heart: S1S2, regular rate and rhythm without overt murmur, gallops, or rubs. No JVD. No peripheral edema Abdomen: Soft, nondistended, nontender. Normoactive bowel sounds. Negative for masses or costovertebral tenderness. Skin: Intact, warm, dry. No lesions or rashes noted. Hematologic: No petechiae or purpra. Mucosa appropriate color and normal nail bed color and refill. Extremities: Atraumatic, moves all extremities per self without difficulty or deficits, negative for cords or calf pain. Neurovascular unremarkable. Neuro: Awake, alert, oriented. Cranial nerves II through XII unremarkable. Cerebellum unremarkable. Motor and sensory unremarkable throughout. Exam nonfocal. Psychiatric: Mood and affect are appropriate. Normal thought process. Answering questions appropriately. Please note that the patient was seen and evaluated during the 2019 SARS-CoV-2 novel coronavirus pandemic period. Community viral transmission is ongoing at time of this encounter and the emergency department is operating under pandemic response procedures. Medical Decision Making: Patient is a 40-year-old female who presents to the emergency room with complaints of chest pain that radiates into her back and right side of her neck since 6 AM. Yesterday she states she generally felt unwell and had did have some generalized abdominal discomfort although resolved by evening. She denies any cardiac history, smoking history, or sitting for long periods of time. Physical exam is unremarkable. Unable to reproduce pain. Patient states her pain has resolved. Lab work is unremarkable. Negative Covid. Negative D-dimer. Negative troponin. EKG is within normal limits. Vital signs have been stable. I have talked with the patient about today's findings, in addition to providing specific details for plan of care. Reassessment at the time of disposition demonstrates that the patient is in no acute distress. The patient is stable for discharge, counseling was provided and we discussed in great detail signs and symptoms that would prompt them to return to the Emergency Department. Medication, follow up and supportive care measures were reviewed and discussed. Voices understanding and is agreeable to plan of care. Denies any further questions or concerns at this time. Diagnostics: CBC, CMP, troponin, EKG, chest x-ray, D-dimer, COVID-19 Therapeutics: Aspirin Prescription: None Impression: Nonspecific chest pain Plan: 1. You were evaluated today on an emergent basis. Your cardiac enzyme basic lab work is unremarkable. Chest x-ray shows no acute findings. EKG is normal. Negative COVID-19 testing. Continue to monitor your symptoms. If your symptoms should worsen, new symptoms develop or any of the signs and symptoms we discussed should arise please return to the emergency room or call 911 (if needed). 2. You can alternate Tylenol and ibuprofen as needed for pain and fever management. 3. We encourage you to follow up with your primary care provider and/or adjunct faculty in the next few days for re-evaluation and further care/management. Definitive disposition and diagnosis as appropriate pending reevaluation and review of above. chest Pain Score (Numeric/FACES): 4 - Related Data Allergies Allergy/AdvReac Type Severity Reaction Status Date / Time mold Allergy sinus Verified 01/10/21 09:57 congestion Home Meds: Home Meds . 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: Musculoskeletal History: Reports: Back Pain, Chronic Neurological History: Reports: Migraines, Vertigo Psychiatric History: Reports: Anxiety, Depression Endocrine/Metabolic History: Reports: Obesity/BMI 30+ Hematologic History: Reports: Anemia - Infectious Disease History Infectious Disease History: Reports: Chicken Pox - Past Surgical History Head Surgeries/Procedures: Reports: None HEENT Surgical History: Reports: Tonsillectomy GI Surgical History: Reports: Cholecystectomy Female Surgical History: Reports: Section, Tubal Ligation Other Female Surgeries/Procedures: hx cervical cerclage Musculoskeletal Surgical History: Reports: Carpal Tunnel Social & Family History - Family History Family Medical History: No Pertinent Family History - Tobacco Use Tobacco Use Status *Q: Former Tobacco User Used Tobacco, but Quit: Yes Month/Year Tobacco Last Used: 7 years - Caffeine Use Caffeine Use: Reports: None - Recreational Drug Use Recreational Drug Use: No ED ROS GENERAL - Review of Systems Review Of Systems: Comprehensive ROS is negative, except as noted in HPI. ED EXAM, GENERAL - Physical Exam Exam: See Below (See dictation) Course - Vital Signs Last Recorded V/S: Last Vital Signs Temp 97.3 F 01/10/21 09:55 Pulse 65 01/10/21 09:55 Resp 18 01/10/21 09:55 BP 127/95 H 01/10/21 09:55 Pulse Ox 99 01/10/21 09:55 - Orders/Labs/Meds Labs: Laboratory Tests 01/10/21 01/10/21 01/10/21 Range/Units 10:08 10:13 10:13 WBC 5.78 (4.0-11.0) K/uL RBC 4.76 (4.30-5.90) M/uL Hgb 13.5 (12.0-16.0) g/dL Hct 41.1 (36.0-46.0) % MCV 86.3 (80.0-98.0) fL MCH 28.4 (27.0-32.0) pg MCHC 32.8 (31.0-37.0) g/dL RDW Std Deviation 43.5 (28.0-62.0) fl RDW Coeff of Abdoulaye 14 (11.0-15.0) % Plt Count 215 (150-400) K/uL MPV 10.10 (7.40-12.00) fL Neut % (Auto) 47.5 L (48.0-80.0) % Lymph % (Auto) 44.8 H (16.0-40.0) % [place] % (Auto) 5.2 (0.0-15.0) % Eos % (Auto) 2.2 (0.0-7.0) % Baso % (Auto) 0.3 (0.0-1.5) % Neut # (Auto) 2.7 (1.4-5.7) K/uL Lymph # (Auto) 2.6 H (0.6-2.4) K/uL [place] # (Auto) 0.3 (0.0-0.8) K/uL Eos # (Auto) 0.1 (0.0-0.7) K/uL Baso # (Auto) 0.0 (0.0-0.1) K/uL Nucleated RBC % 0.0 /100WBC Nucleated RBCs # 0 K/uL D-Dimer, Quantitative 0.43 (0.0-0.50) mg/L FEU Sodium (136-145) mmol/L Potassium (3.5-5.1) mmol/L Chloride (98-107) mmol/L Carbon Dioxide (21.0-32.0) mmol/L BUN (7.0-18.0) mg/dL Creatinine (0.6-1.0) mg/dL Est Cr Clr Drug Dosing mL/min Estimated GFR (MDRD) ml/min Glucose (74-106) mg/dL Calcium (8.5-10.1) mg/dL Total Bilirubin (0.2-1.0) mg/dL AST (15-37) IU/L ALT (14-63) IU/L Alkaline Phosphatase (46-116) U/L Troponin I (0.000-0.056) ng/mL Total Protein (6.4-8.2) g/dL Albumin (3.4-5.0) g/dL Globulin (2.6-4.0) g/dL Albumin/Globulin Ratio (0.9-1.6) SARS-CoV-2 RNA (VIOLETTA) NEGATIVE (NEGATIVE) 01/10/21 Range/Units 10:13 WBC (4.0-11.0) K/uL RBC (4.30-5.90) M/uL Hgb (12.0-16.0) g/dL Hct (36.0-46.0) % MCV (80.0-98.0) fL MCH (27.0-32.0) pg MCHC (31.0-37.0) g/dL RDW Std Deviation (28.0-62.0) fl RDW Coeff of Abdoulaye (11.0-15.0) % Plt Count (150-400) K/uL MPV (7.40-12.00) fL Neut % (Auto) (48.0-80.0) % Lymph % (Auto) (16.0-40.0) % [place] % (Auto) (0.0-15.0) % Eos % (Auto) (0.0-7.0) % Baso % (Auto) (0.0-1.5) % Neut # (Auto) (1.4-5.7) K/uL Lymph # (Auto) (0.6-2.4) K/uL [place] # (Auto) (0.0-0.8) K/uL Eos # (Auto) (0.0-0.7) K/uL Baso # (Auto) (0.0-0.1) K/uL Nucleated RBC % /100WBC Nucleated RBCs # K/uL D-Dimer, Quantitative (0.0-0.50) mg/L FEU Sodium 141 (136-145) mmol/L Potassium 3.9 (3.5-5.1) mmol/L Chloride 105 (98-107) mmol/L Carbon Dioxide 27.9 (21.0-32.0) mmol/L BUN 11 (7.0-18.0) mg/dL Creatinine 0.9 (0.6-1.0) mg/dL Est Cr Clr Drug Dosing 74.77 mL/min Estimated GFR (MDRD) > 60.0 ml/min Glucose 103 (74-106) mg/dL Calcium 8.4 L (8.5-10.1) mg/dL Total Bilirubin 0.2 (0.2-1.0) mg/dL AST 17 (15-37) IU/L ALT 29 (14-63) IU/L Alkaline Phosphatase 64 (46-116) U/L Troponin I < 0.050 (0.000-0.056) ng/mL Total Protein 7.1 (6.4-8.2) g/dL Albumin 4.1 (3.4-5.0) g/dL Globulin 3.0 (2.6-4.0) g/dL Albumin/Globulin Ratio 1.4 (0.9-1.6) SARS-CoV-2 RNA (VIOLETTA) (NEGATIVE) Meds: Medications Discontinued Medications Generic Name Dose Route Start Last Admin Trade Name Freq PRN Reason Stop Dose Admin Aspirin 324 mg 01/10/21 10:04 01/10/21 10:14 Aspirin 81 Mg Tab.Chew PO 01/10/21 10:05 324 mg ONETIME ONE Administration Departure - Departure Time of Disposition: 11:32 Disposition: Home, Self-Care 01 Clinical Impression: Nonspecific chest pain Instructions: Nonspecific Chest Pain, Adult, [id number] Referrals: PCP,None [Primary Care Provider] - Forms: ED Department Discharge Additional Instructions: The following information is given to patients seen in the emergency department who are being discharged to home. This information is to outline your options for follow-up care. We provide all patients seen in our emergency department with a follow-up referral. The need for follow-up, as well as the timing and circumstances, are variable depending upon the specifics of your emergency department visit. If you don't have a primary care physician on staff, we will provide you with a referral. We always advise you to contact your personal physician following an emergency department visit to inform them of the circumstance of the visit and for follow-up with them and/or the need for any referrals to a consulting specialist. The emergency department will also refer you to a specialist when appropriate. This referral assures that you have the opportunity for follow-up care with a specialist. All of these measure are taken in an effort to provide you with optimal care, which includes your follow-up. Under all circumstances we always encourage you to contact your private physician who remains a resource for coordinating your care. When calling for follow-up care, please make the office aware that this follow-up is from your recent emergency room visit. If for any reason you are refused follow-up, please contact the [facility] Emergency Department at and asked to speak to the emergency department charge nurse. [facility] [address] [place] [id number] [id number] Thank you for choosing the [facility] emergency department in [place] for your medical needs today. It was a pleasure caring for you. Today you were seen in the emergency department for chest pain. 1. You were evaluated today on an emergent basis. Your cardiac enzyme basic lab work is unremarkable. Chest x-ray shows no acute findings. EKG is normal. Negative COVID-19 testing. Continue to monitor your symptoms. If your symptoms should worsen, new symptoms develop or any of the signs and symptoms we discussed should arise please return to the emergency room or call [phone] (if needed). 2. You can alternate Tylenol and ibuprofen as needed for pain and fever management. 3. We encourage you to follow up with your primary care provider and/or adjunct faculty in the next few days for re-evaluation and further care/management. Sepsis Event Note (ED) - Evaluation Sepsis Screening Result: No Definite Risk - Focused Exam Vital Signs: Vital Signs Temp Pulse Resp BP Pulse Ox 01/10/21 09:55 97.3 F 65 18 127/95 H 99
--- NOTE | 2021-01-10 10:39 | CR ---
INDICATION: Chest Pain TECHNIQUE: Chest 1 view. COMPARISON: None. FINDINGS: Cardiovascular and mediastinum: Heart size and vasculature are normal in caliber and appearance. Mediastinum is within normal limits. Lungs and pleural space: Lungs are clear. No sign of infiltrate or mass. No sign of pleural effusion. No pneumothorax. Bones and soft tissues: No significant findings. IMPRESSION: Unremarkable chest. Dictated by: Kenyon Farias MD @ 01/10/2021 10:38:39 (Electronically Signed)
[2021-01-10 11:02] LABS: BLOOD UREA NITROGEN,BUN 11 mg/dL (7.0-18.0); CARBON DIOXIDE,CO2 27.9 mmol/L (21.0-32.0); CHLORIDE,CL 105 mmol/L (98-107); GLUCOSE RANDOM 103 mg/dL (74-106); POTASSIUM,K 3.9 mmol/L (3.5-5.1); SODIUM,NA 141 mmol/L (136-145)
[2021-01-10 12:10] VITALS: BP 120/66; PULSE 62
== END 2021-01-10 11:56 | disposition home or self-care (01) ==
LOC: MW.ED 09:45
DX: R07.9 Chest pain, unspecified (principal); E66.9 Obesity, unspecified; K21.9 Gastro-esophageal reflux disease without esophagitis; Z68.37 Body mass index [BMI] 37.0-37.9, adult; Z91.048 Other nonmedicinal substance allergy status; Z87.891 Personal history of nicotine dependence; Z20.822 Contact with and (suspected) exposure to COVID-19
CPT/HCPCS: 36415; 71045; 80053; 84484; 85025; 85379; 87635; 93005; 99285; A9270; U0002

== ENCOUNTER 2021-07-01 21:15 | Emergency (ER) | payer OTHER ==
[2021-07-01] MEDS ORDERED: Famotidine 20 MG Tab PO ONE (22:17)
[2021-07-01] MEDS ORDERED: diphenhydrAMINE 50 MG Cap PO ONE (22:17)
[2021-07-01 23:53] VITALS: BP 128/72; PULSE 83
== END 2021-07-01 23:53 | disposition home or self-care (01) ==
LOC: MW.ED 21:15
DX: L50.9 Urticaria, unspecified (principal); K21.9 Gastro-esophageal reflux disease without esophagitis; E66.9 Obesity, unspecified; Z68.34 Body mass index [BMI] 34.0-34.9, adult; Z91.048 Other nonmedicinal substance allergy status
CPT/HCPCS: 99282; A9270

== ENCOUNTER 2021-08-24 08:17 | Emergency (ER) | payer OTHER ==
[2021-08-24 08:26] VITALS: PULSE 67
[2021-08-24 14:36] VITALS: BP 134/67
== END 2021-08-24 10:10 | disposition home or self-care (01) ==
LOC: MW.ED 08:17
DX: S69.92XA Unspecified injury of left wrist, hand and finger(s), initial encounter (principal); K21.9 Gastro-esophageal reflux disease without esophagitis; E66.9 Obesity, unspecified; Z68.36 Body mass index [BMI] 36.0-36.9, adult; Z88.8 Allergy status to other drugs, medicaments and biological substances; W23.0XXA Caught, crushed, jammed, or pinched between moving objects, initial encounter
CPT/HCPCS: 73140-26-F4; 73140-F4; 99283; 99283-25

== ENCOUNTER 2021-11-19 14:34 | Emergency (ER) | payer OTHER | END 2021-11-19 15:10 | disposition left against medical advice (07) | LOC: MW.ED 14:34 | DX: Z53.21 Procedure and treatment not carried out due to patient leaving prior to being seen by health care provider (principal) ==

== ENCOUNTER 2021-11-23 13:21 | Emergency (ER) | payer OTHER ==
[2021-11-23 14:01] VITALS: BP 131/80; PULSE 65
== END 2021-11-23 16:34 | disposition left against medical advice (07) ==
LOC: MW.ED 13:21
DX: Z53.21 Procedure and treatment not carried out due to patient leaving prior to being seen by health care provider (principal)
CPT/HCPCS: 93005

== ENCOUNTER 2023-01-21 07:22 | Emergency (ER) | payer BC, OTHER ==
[2023-01-21 07:53] VITALS: BP 134/76
[2023-01-21 08:40] LABS: CORONAVIRUS COVID-19 NAA NEGATIVE (NEGATIVE); INFLUENZA A NAA NEGATIVE (NEGATIVE); INFLUENZA B NAA NEGATIVE (NEGATIVE)
[2023-01-21 08:57] VITALS: PULSE 64
== END 2023-01-21 08:56 | disposition home or self-care (01) ==
LOC: MW.ED 07:22
DX: R05.9 Cough, unspecified (principal); Z91.048 Other nonmedicinal substance allergy status; Z20.822 Contact with and (suspected) exposure to COVID-19
CPT/HCPCS: 0240U; 71045; 87651; 99283

== ENCOUNTER 2023-04-07 16:09 | Emergency (ER) | payer BC ==
[2023-04-07 16:30] LABS: BASOPHILS ABSOLUTE AUTO 0.03 K/uL (0.00-0.20); BASOPHILS PERCENT AUTO 0.3 % (0.0-1.0); EOSINOPHILS PERCENT AUTO 3.8 % (0.0-6.0); HEMATOCRIT 39.7 % (37.0-47.0); HEMOGLOBIN 13.5 g/dL (12.0-16.0); IMMATURE GRAN ABSOLUTE AUTO 0.04 K/uL (0.00-0.05); IMMATURE GRAN PERCENT AUTO 0.4 % (0.0-0.4); LYMPHOCYTES ABSOLUTE AUTO 3.27 K/uL (1.00-4.80); LYMPHOCYTES PERCENT AUTO 31.3 % (24.0-44.0); MEAN CORPUSCULAR HEMOGLOBIN 28.2 pg (28.0-32.0); MEAN CORPUSCULAR VOLUME 83.1 fL (83.0-99.0); MEAN PLATELET VOLUME 9.6 fL (9.4-12.3); MONOCYTES ABSOLUTE AUTO 0.85 K/uL (0.00-0.80); MONOCYTES PERCENT AUTO 8.1 % (0.0-8.0); NEUTROPHILS ABSOLUTE AUTO 5.86 K/uL (1.80-7.70); NEUTROPHILS PERCENT AUTO 56.1 % (41.0-71.0); PLATELET COUNT,PLT 228 K/uL (150-400); RED BLOOD CELL COUNT 4.78 M/uL (4.10-5.30); WHITE BLOOD CELL COUNT,WBC 10.45 K/uL (3.9-11.3)
[2023-04-07] MEDS ORDERED: Alum Hydro/Mag Hydro/Simeth XS 15 ML, Lidocaine 2% 5 ML PO ONE ×2 (16:47)
[2023-04-07] MEDS ORDERED: LORazepam 2 MG/ML SDV IVPUSH ONE (16:47)
[2023-04-07] MEDS ORDERED: Lactated Ringers 1,000 ML IV SCH (17:00)
[2023-04-07 17:06] LABS: A/G RATIO 1.1 (0.9-1.6); ALBUMIN 3.9 g/dL (3.4-5.0); BILIRUBIN TOTAL 0.5 mg/dL (0.2-1.0); CALCIUM 9.1 mg/dL (8.5-10.1); CARBON DIOXIDE,CO2 25.2 mmol/L (21.0-32.0); CREATININE 1.1 mg/dL (0.6-1.0); EST CRCL DRUG DOSING (CG) 59.95 mL/min; POTASSIUM,K 3.4 mmol/L (3.5-5.1); PROTEIN TOTAL,TP 7.4 g/dL (6.4-8.2); TSH ULTRASENSITIVE 3.14 uIU/mL (0.36-3.74)
[2023-04-07 17:33] LABS: CORONAVIRUS COVID-19 NAA NEGATIVE (NEGATIVE); INFLUENZA A NAA NEGATIVE (NEGATIVE); INFLUENZA B NAA NEGATIVE (NEGATIVE); RESPIRATORY SYNCYTIAL VIR NAA NEGATIVE (NEGATIVE)
[2023-04-07 18:32] VITALS: BP 134/79; PULSE 74
== END 2023-04-07 19:02 | disposition home or self-care (01) ==
LOC: MW.ED 16:09
DX: K29.70 Gastritis, unspecified, without bleeding (principal); Z20.822 Contact with and (suspected) exposure to COVID-19; Z91.048 Other nonmedicinal substance allergy status; E66.9 Obesity, unspecified; Z68.37 Body mass index [BMI] 37.0-37.9, adult; Z90.710 Acquired absence of both cervix and uterus
CPT/HCPCS: 0241U; 71046; 80053; 83690; 83880; 84443; 84484; 84703; 85025; 85379; 93005; 96361; 96374; 99285; A9270; J2060; J7120